=== PATIENT | male | born 1965 | race Caucasian/White ===

== ENCOUNTER 2022-11-23 07:34 | Day surgery (SDC) | payer MEDICARE ==
[2022-11-20 10:55] VITALS: BMI 35.1
[2022-11-23] MEDS ORDERED: CEFAZOLIN 2 GM VIAL ONE (09:36)
[2022-11-23] MEDS ORDERED: Lidocaine 1% MPF 2 ML VIAL ONE (09:36)
[2022-11-23] MEDS ORDERED: Sodium Chloride 0.9% 100 ML ONE (09:36)
[2022-11-23 11:08] LABS: #Eosinphils 0.1 thou/uL (0.0-0.7); #Lymphocytes 2.4 thou/uL (1.20-3.40); #Monocytes 0.6 thou/uL (0.11-0.59); #Neutrophils 3.1 thou/uL (1.40-6.50); %Basophils 0.6 % (0.0-1.0); %Eosinophils 1.9 % (0.0-10.0); %Lymphocytes 38.2 % (21.0-51.0); %Monocytes 9.3 % (0.0-10.0); Hemoglobin 14.3 g/dL (14.0-18.0); Mean Corpuscular HGB CONC 32.8 g/dL (32.0-36.0); Mean Corpuscular Hemoglobin 30.1 pg (27.0-31.0); Mean Corpuscular Volume 91.6 fl (78.0-98.0); Mean Platelet Volume 6.4 fL (7.4-10.4); Platelet Count 298 10x3/uL (130-400); RBC Distribution Width 12.1 % (11.5-14.5); Red Blood Cell (RBC) Count 4.77 mill/uL (4.70-6.10); White Blood Cell (WBC) Count 6.2 10x3/uL (4.8-10.8)
[2022-11-23 12:01] LABS: Anion Gap 12 mmol/L (10-20); BUN (Urea Nitrogen) 8 mg/dL (8.4-25.7); Calc. Creatinine Clearance 167 mL/min (70-130); Calcium 9.5 mg/dL (7.8-10.44); Carbon Dioxide 26 mmol/L (22-29); Chloride 105 mmol/L (98-107); Estimated GFR 100; Glucose 107 mg/dL (70-105); Potassium 4.6 mmol/L (3.5-5.1); Sodium 138 mmol/L (136-145)
[2022-11-23] MEDS ORDERED: Vancomycin 1 GM VIAL ONE (12:59)
[2022-11-23] MEDS ORDERED: Fentanyl 250 MCG/5 ML VIAL ONE (13:05)
[2022-11-23] MEDS ORDERED: Ondansetron PF 4 MG/2 ML Vial ONE (13:22)
[2022-11-23] MEDS ORDERED: PROPOFOL 200 MG/20 ML VIAL ONE (13:22)
[2022-11-23] MEDS ORDERED: Ketorolac Tromethamine 30 MG/ML VIAL ONE (13:22)
[2022-11-23] MEDS ORDERED: Dexamethasone 20 MG/5 ML VIAL ONE (13:22)
[2022-11-23] MEDS ORDERED: Glycopyrrolate 0.2 MG/ML 5 ML SYRINGE ONE (13:22)
[2022-11-23] MEDS ORDERED: Rocuronium Bromide 10 MG/ML (10ML VIAL) ONE (13:22)
[2022-11-23] MEDS ORDERED: Lidocaine 1% PF 5 ML VIAL ONE (13:22)
[2022-11-23] MEDS ORDERED: NEOSTIGMINE 3 MG/3 ML SYR 3 MG/3 ML SYRINGE ONE (13:22)
[2022-11-23] MEDS ORDERED: Fentanyl 100 MCG/2 ML VIAL ONE (14:58)
[2022-11-23] MEDS ORDERED: Tamsulosin HCl 0.4 MG CAP ONE (15:30)
[2022-11-23] MEDS ORDERED: HYDROcodone/Acetaminophen 10/325 mg Tablet ONE (15:52)
== END 2022-11-23 16:20 | disposition home or self-care (01) ==
LOC: EDBD → SDC 07:34
PROVIDERS: ATTEND Neurological Surgery
PROC: 0SG0071 Fusion of Lumbar Vertebral Joint with Autologous Tissue Substitute, Posterior Approach, Posterior Column, Open Approach (ICD-10-PCS; principal; 2022-11-23)
DX: M43.16 Spondylolisthesis, lumbar region (principal); I10 Essential (primary) hypertension; F17.200 Nicotine dependence, unspecified, uncomplicated; E66.9 Obesity, unspecified; Z68.35 Body mass index [BMI] 35.0-35.9, adult; Z79.899 Other long term (current) drug therapy
CPT/HCPCS: 80048; 85025; 93005; 93010; C1713; C1768; C1776; J1100; J1885; J2405; J2704; J3010; J3370; J3490

== ENCOUNTER 2022-12-08 12:54 | Outpatient (CLI) | payer MEDICARE | END 2022-12-08 12:55 | disposition home or self-care (01) | LOC: TBSIIMAG 12:54 | PROVIDERS: ATTEND Neurological Surgery | DX: M43.16 Spondylolisthesis, lumbar region (principal); Z98.1 Arthrodesis status | CPT/HCPCS: 72100 ==